=== PATIENT | female | born 1955 | race Caucasian/White ===

== ENCOUNTER 2017-04-10 06:07 | Day surgery (SDC) | payer MEDICAID ==
[~2017-04-10] VITALS: Ht 160 cm; Wt 91.4 kg
[~2017-04-10 06:07] MED LIST: HYDR-305 PO; METH5TAB2 PO; OMEP20 PO
[2017-04-10] MEDS ORDERED: SODIUM CHLORIDE 0.9% 1,000 ML IV ONE ×2 (06:24→06:55)
[2017-04-10] MEDS ORDERED: ESOM20CA31 PO (06:38)
== END 2017-04-10 09:20 | disposition home or self-care (01) ==
LOC: SURGERY 06:07
PROVIDERS: ATTEND Specialist
DX: K29.70 Gastritis, unspecified, without bleeding (principal); K21.9 Gastro-esophageal reflux disease without esophagitis; K44.9 Diaphragmatic hernia without obstruction or gangrene; F32.9 Major depressive disorder, single episode, unspecified; E66.9 Obesity, unspecified; G40.909 Epilepsy, unspecified, not intractable, without status epilepticus; Z88.8 Allergy status to other drugs, medicaments and biological substances; Z90.49 Acquired absence of other specified parts of digestive tract; Z98.890 Other specified postprocedural states; Z87.39 Personal history of other diseases of the musculoskeletal system and connective tissue
CPT/HCPCS: 43239; 88305; 88312; C1769; J7030